=== PATIENT | female | born 1970 | race Caucasian/White ===

== ENCOUNTER 2022-04-07 10:45 | Emergency (ER) | payer MEDICAID ==
[~2022-04-07] VITALS: Ht 157.5 cm; Wt 75.0 kg
[2022-04-07 10:58] VITALS: BP 132/87
[2022-04-07] MEDS ORDERED: ONDANSETRON HCL 4MG/2ML INJ IV STA (11:30)
[2022-04-07] MEDS ORDERED: SODIUM CHLORIDE 0.9% 1,000 ML IV ONE (11:30)
[2022-04-07 11:53] LABS: BASOPHILS % 0.6 % (0.0-2.0); EOSINOPHILS % 0.1 % (0.0-5.0); HEMOGLOBIN. 10.7 g/dL (12.0-16.0); LYMPHOCYTES % 7.4 % (20.0-50.0); MEAN CORPUSCULAR HEMOGLOBIN 19.3 pg (28.0-32.0); MEAN CORPUSCULAR VOLUME 65.1 fL (81.0-99.0); MEAN PLATELET VOLUME 7.8 fl (7.4-10.4); NEUTROPHILS % 87.9 % (40.0-76.0); PLATELET 484 x1000/uL (130-400); RED BLOOD CELL COUNT 5.53 mill/uL (4.2-5.4); RED CELL DISTRIBUTION WIDTH 18.7 % (11.6-14.6)
[2022-04-07 11:56] LABS: CHLORIDE 96 mEq/L (98-107)
[2022-04-07 12:36] LABS: INR 1.1; PROTHROMBIN TIME 11.4 sec (9.6-11.0)
[2022-04-07] MEDS ORDERED: ONDA4TAB50 PO (12:53)
[2022-04-07 13:20] LABS: PLATELET ESTIMATE INCREASED
== END 2022-04-07 15:40 | disposition home or self-care (01) ==
LOC: ER 11:08
DX: R11.2 Nausea with vomiting, unspecified (principal); Z88.8 Allergy status to other drugs, medicaments and biological substances
CPT/HCPCS: 36415; 80053; 83690; 85025; 85610; 96361; 96374; 99284; J2405; J7030

== ENCOUNTER 2025-06-14 21:28 | Emergency (ER) | payer MEDICAID ==
[~2025-06-14] VITALS: Ht 162.6 cm; Wt 73.0 kg
[~2025-06-14 21:28] MED LIST: ONDA4TAB50 PO
[2025-06-14 21:30] VITALS: O2SAT 98
[2025-06-14 21:43] VITALS: BP 144/80; PULSE 105; RESP 16; TEMP 37.1; O2SAT 97
== END 2025-06-14 23:25 | disposition left against medical advice (07) ==
LOC: ER 21:28 → CMPBEDREQ 06-15 08:02
DX: T18.9XXA Foreign body of alimentary tract, part unspecified, initial encounter (principal); M19.90 Unspecified osteoarthritis, unspecified site; W44.9XXA Unspecified foreign body entering into or through a natural orifice, initial encounter; Y93.89 Activity, other specified; Y92.89 Other specified places as the place of occurrence of the external cause; Y99.8 Other external cause status
CPT/HCPCS: 70360; 71045; 74018; 99291